=== PATIENT | male | born 1985 ===

== ENCOUNTER 2021-12-12 12:15 | Outpatient (CLI) | payer OTHER | END 2021-12-12 12:16 | disposition home or self-care (01) | LOC: CSHCP 12:15 | PROVIDERS: ATTEND Chiropractor | DX: R06.02 Shortness of breath (principal); R07.9 Chest pain, unspecified; J44.9 Chronic obstructive pulmonary disease, unspecified; I51.9 Heart disease, unspecified | CPT/HCPCS: 71046; 93306; 94060; 94760 ==